=== PATIENT | female | born 1995 | race Caucasian/White ===

== ENCOUNTER 2024-08-02 12:28 | Emergency (ER) | payer OTHER, MEDICAID, SELFPAY ==
[2024-08-02 12:34] VITALS: BP 123/84; PULSE 112; RESP 19; TEMP 36.8; O2SAT 98; BMI 31.8
--- NOTE | 2024-08-02 12:37 | XR_ITS ---
Examination: Complete OB ultrasound, less than 14 weeks, transabdominal Date and time of exam: August 02, 2024 1402 hours INDICATIONS: Vaginal bleeding and vomiting beginning midnight Technique: Obstetrical ultrasound images less than 14 weeks performed via transabdominal imaging Findings: A normal shaped single intrauterine gestation is present in the uterus. pole 5.2 cm corresponds to 11 week 6 day gestational age Cardiac motion 185 BPM Ultrasonographic survey of visible and placental structures unremarkable. Amniotic fluid volume appears appropriate for this estimated gestational age. Right ovary 3.5 x 1.4 x 2.2 cm arterial flow Left ovary 2.4 x 1.9 x 1.8 cm arterial flow IMPRESSION: Viable intrauterine gestation 11 weeks 6 days Given the cardiac rate 185 BPM, recommend short-term follow-up pelvic sonography.
--- NOTE | 2024-08-02 12:37 | PD.EDRME ---
Rapid Medical Screening Exam RME Arrival date/time: 08/02/24 12:28 28-year-old female approximately 11 weeks presents to the emergency department complains of nausea and vomiting Chief Complaint: Nausea/Vomiting/Diarrhea Time Seen by Provider: 08/02/24 12:32 Vital signs: Vital Signs Temperature 98.2 F 08/02/24 12:34 Pulse Rate 112 H 08/02/24 12:34 Respiratory Rate 19 08/02/24 12:34 Blood Pressure 123/84 08/02/24 12:34 Pulse Oximetry (%) 98 08/02/24 12:34 Oxygen Delivery Method Room Air 08/02/24 12:34
[2024-08-02] MEDS: METOCLOPRAMIDE INJ 5 MG/ML VIAL 2 ML 10 MG IM (12:49)
[2024-08-02 12:56] LABS: Collection Type, Urine Clean Catch
[2024-08-02 13:09] LABS: Basophils % (Auto) 0 % (0-2.5); Eosinophils % (Auto) 0 % (0-10); Hematocrit 39.7 % (36.0-46.0); Hemoglobin 13.8 g/dL (12.0-16.0); Immature Granulocytes % (Auto) 1 % (0-0); Immature Granulocytes Auto 0.08 Thou/mm3 (0.00-0.00); Lymphocytes # (Auto) 0.5 Thou/mm3 (1.0-4.8); Lymphocytes % (Auto) 5 % (10-50); Mean Corpuscular HGB Conc 34.8 g/dl (31.0-37.0); Mean Corpuscular Hemoglobin 28.8 pg (25.0-35.0); Mean Corpuscular Volume 83 fL (80-100); Monocytes # (Auto) 0.5 Thou/mm3 (0.0-0.8); Monocytes % (Auto) 5 % (0-12); Neutrophils # (Auto) 8.6 Thou/mm3 (1.8-7.7); Neutrophils % (Auto) 89 % (37-80); Nucleated Red Blood Cell % 0 /100 WBC (0); Platelet Count 333 Thou/mm3 (140-440); RDW Standard Deviation 42.5 fL (36.4-46.3); White Blood Count 9.7 Thou/mm3 (3.6-11.0)
[2024-08-02 13:28] LABS: Bacteria,Urine Rare; Bilirubin,Urine Negative (Negative); Blood,Urine 1+ (Negative); Color,Urine Yellow (Lt Yel-Yel); Glucose, Urine Negative (Negative); Ketones,Urine 3+ (Negative); Leukocyte Esterase,Urine Negative (Negative); Nitrite,Urine Negative (Negative); PH,Urine 6.5 (5.0-7.0); Protein,Urine 1+ (Neg - Trace); RBC,Urine 21 /hpf (0-3); Specific Gravity,Urine 1.038 (1.001-1.035); Squamous Epithelial Cell,Urine 19 /hpf (0-5); Urobilinogen,Urine Negative mg/dL (0.0-1.0); WBC,Urine 3 /hpf (0-5)
[2024-08-02 13:30] LABS: Alanine Aminotransferase 15 U/L (10-49); Albumin/Globulin Ratio 1.7 (1.2-2.2); Alkaline Phosphatase 64 U/L (46-116); Anion Gap 9 (7-16); Aspartate Amino Transferase 17 U/L (0-34); BUN/Creatinine Ratio 13 Ratio (12-20); Bilirubin,Total 1.1 mg/dL (0.3-1.2); Blood Urea Nitrogen 8 mg/dL (9-23); Calcium 9.7 mg/dL (8.3-10.6); Calcium (Corrected) 9.7 mg/dL (8.5-10.1); Carbon Dioxide 21.2 mMol/L (20.0-31.0); Chloride 103 mMol/L (98-107); Creatinine (Component) 0.6 mg/dL (0.6-1.3); Estimated Creatinine Clearance 134.6 mL/min (>60); Glucose 140 mg/dL (74-106); Magnesium 1.6 mg/dL (1.6-2.6); Osmolality,Calculated 266 (275-295); Potassium 3.3 mMol/L (3.4-5.1); Sodium 133 mMol/L (136-145); eGFR > 60 See Note
[2024-08-02 13:30] LABS: Clarity,Urine Hazy (Clear/Hazy)
[2024-08-02 14:04] LABS: Beta HCG,Quantitative 78933 mIU/mL (<5.0)
--- NOTE | 2024-08-02 15:08 | EDNOTE_ITS ---
Nausea/Vomit./Diarrhea-RME/HPI General Chief complaint: Nausea/Vomiting/Diarrhea Stated complaint: VOMITING AND DIARRHEA NON-STOP SINCE MIDNIGHT 11WK Time Seen by Provider: 08/02/24 12:32 Arrival date/time: 08/02/24 12:28 RME / HPI RME / HPI Narrative: 08/02/24 12:28 28-year-old female approximately 11 weeks presents to the emergency department complains of nausea and vomiting DR. CRISTOBAL MAIN ED EVALUATION 28 year old female with history of chiari malformation type 1 and currently 11 weeks gestational age A1 presents to the ED for complaint of nausea, nonbloody vomiting, and nonbloody diarrhea today. Reports her symptoms began last night and non stop since. Reportedly had been prescribed Diclegis for the nausea/vomiting by her OB which she took last night with no improvement. Denies any fevers, chills, chest pain, shortness of breath, abdominal pain, or urinary symptoms. Related Data Previous Rx's ?Medication ?Instructions ?Recorded rizatriptan 10 mg tablet (Maxalt) See Rx Instructions PO .COMPLEX 08/29/20 #20 tabs ondansetron 4 mg disintegrating 4 mg PO Q8H PRN nausea and 07/01/24 tablet vomiting #14 tabs Allergies Allergy/AdvReac Type Severity Reaction Status Date / Time sulfamethoxazole Allergy Mild RASH Verified 08/02/24 12:32 trimethoprim Allergy Mild RASH Verified 08/02/24 12:32 Review of Systems Review of Systems Narrative Review of Systems: GEN: No fever, no chills, no weight loss EYES: No discharge, no visual changes, no pain HEENT: No ear pain, no congestion, no sore throat PULM: No shortness of breath, no cough, no congestion CV: No chest pain, no dyspnea on exertion, no palpitations GI: +n/v/d, no pain, no constipation : No frequency, no urgency and no dysuria MUSC/SKEL No joint pain, no back pain SKIN: No rash PSYCH: No hallucinations, no depression HEME/LYMPH: No easy bleeding or bruising tendencies NEURO: No weakness, no headache Past Medical History Past Medical History CARDIAC: Negative Congestive Heart Failure RESPIRATORY: Negative Chronic Obstructive Pulmonary Disease (COPD) GENITOURINARY: Negative Renal Disease ENDOCRINE: Negative Diabetes Mellitus Type 1 or Diabetes Mellitus Type 2 Social History SMOKING STATUS: Never smoker ED Exam Narrative Physical exam: GENERAL APPEARANCE: Well hydrated, well nourished, in no acute distress. VITALS: All vitals were reviewed and the pulse ox is 98% on room air which is normal according to my interpretation. HEENT: Normocephalic, atramatic, EOMI, EACs are patent. There is no bulge or retraction. Throat without erythema or exudate. Moist oromucosa. No jaundice NECK: Supple, no JVD or bruits. CARDIOVASCULAR: Heart regular without S3-S4 or murmur. No rubs or gallops. LUNGS/CHEST: Clear to auscultation bilaterally. No rales, rhonchi, or wheezing. Normal inspection. ABDOMEN: Soft, nontender, with normal bowel sounds. No pulsatile masses. No rebound, rigidity, or guarding. No incarcerated hernia. Normal inspection and palpation. EXTREMITIES: Normal inspection and palpation. No edema, clubbing, or cyanosis. Intact CSM SKIN: Warm and dry without rashes. Normal inspection. MUSCULOSKELETAL: Normal inspection. No gross deformity, full ROM all extremities NEURO: Alert and oriented x3. Cranial nerves II through XII grossly intact. There are no other motor or sensory deficits noted. PSYCHIATRIC: Normal mood and affect. No psychosis Course Quality Measures none Orders Category Date Time Status US OB <= 14 weeks fetus Stat Exams 08/02/24 12:37 Completed ABO/RH Type Stat Lab 08/02/24 12:51 Completed Beta HCG,Quantitative Stat Lab 08/02/24 12:51 Completed CBC Stat Lab 08/02/24 12:51 Completed Comprehensive Metabolic Panel Stat Lab 08/02/24 12:51 Completed Mag [Magnesium] Stat Lab 08/02/24 12:51 Completed UA [Urinalysis] Stat Lab 08/02/24 12:54 Completed Urine Culture Stat Lab 08/02/24 12:54 Received Metoclopramide Inj [Reglan Inj] Med 08/02/24 12:37 Discontinued 10 mg IM X1 ONE Sodium Chloride 0.9% 1000 ml [Ns] 1,000 ml Med 08/02/24 15:04 Discontinued IV 999 mls/hr Vital Signs Vital signs: Vital Signs Temperature 98.2 F 08/02/24 12:34 Pulse Rate 112 H 08/02/24 12:34 Respiratory Rate 19 08/02/24 12:34 Blood Pressure 123/84 08/02/24 12:34 Pulse Oximetry (%) 98 08/02/24 12:34 Oxygen Delivery Method Room Air 08/02/24 12:34 Nausea/Vomiting/Diarrhea MDM Narrative MDM Narrative:: Emily Alamo am scribing for and in the presence of Dr. Cristobal. CBC is negative. CMP is negative. UA is dehydrated. Ultrasound report is enclosed. Beta-hCG is 79,000. The patient blood type is A+. She is not bleeding. Magnesium is negative. In the emergency department the patient received a liter of normal saline bolus for dehydration. And I gave the patient copy of the ultrasound report to follow-up with her ENAMEL BUFFER as an outpatient. 6 PM as I was busy with a critical patient in another room, the patient eloped after receiving a full liter of normal saline bolus Patient data External records reviewed:: [facility] previous records (I reviewed ED visit on 06/30/2024) Clinical information provided by:: patient Social determinants that could affect healthcare access:: none Patient has the following chronic illnesses:: chiari malformation type 1 and currently 11 weeks gestational age A1 How is presenting disease/condition affected by chronic disease/condition?: exacerbated by Evaluation data The following diagnostics were reviewed and interpreted by me:: lab results and radiology exam(s) Lab and/or radiology exams considered but not ordered:: None Interpretation Summary: Ordering Physician: Sherman Seymour NP, NP Date of Service: 08/02/24 Procedure(s): US OB <= 14 weeks fetus Accession Number(s): [id number] cc: Sherman Seymour NP, NP; Leon Stacy MD; Trey Edwards MD~ Examination: Complete OB ultrasound, less than 14 weeks, transabdominal Date and time of exam: August 02, 2024 1402 hours INDICATIONS: Vaginal bleeding and vomiting beginning midnight Technique: Obstetrical ultrasound images less than 14 weeks performed via transabdominal imaging Findings: A normal shaped single intrauterine gestation is present in the uterus. pole 5.2 cm corresponds to 11 week 6 day gestational age Cardiac motion 185 BPM Ultrasonographic survey of visible and placental structures unremarkable. Amniotic fluid volume appears appropriate for this estimated gestational age. Right ovary 3.5 x 1.4 x 2.2 cm arterial flow Left ovary 2.4 x 1.9 x 1.8 cm arterial flow IMPRESSION: Viable intrauterine gestation 11 weeks 6 days Given the cardiac rate 185 BPM, recommend short-term follow-up pelvic sonography. Dictated By: Leon Stacy MD Signed By: <Electronically signed by Leon Stacy MD in OV> 08/02/24 1454 Medications / Prescriptions Medications / Prescriptions considered but not ordered:: None Medication administrations:: Medication Administration History Discontinued Medications Sodium Chloride (Ns) 1,000 mls @ 999 mls/hr IV .Q1H1M ONE Stop: 08/02/24 16:04 Last Admin: 08/02/24 15:48 Dose: 999 mls/hr Documented By: ARF Metoclopramide HCl (Metoclopramide Inj 5 Mg/Ml Vial 2 Ml) 10 mg IM X1 ONE; Protocol Stop: 08/02/24 12:38 Last Admin: 08/02/24 12:49 Dose: 10 mg Documented By: ARF See above Consultations Consultation(s) initiated? (list below): No Diagnosis Nausea Differential Diagnosis: gastroenteritis, drug-induced nausea and vomiting, dehydration and other (Hyperemesis gravidarum ) Most likely diagnosis given after review of the tests above:: Dehydration Admission Indicated Admission indicated?: not indicated Admission Request Was there a request for admission?: No Disposition Plan Disposition Plan: Discharge Discharge Attestation Discharge Attestation: The patient and all family members were given an opportunity to ask questions and understood the discharge instructions. Discharge instructions specifically effects, indications for sooner follow up or return to the emergency department, and the expected course of current diagnosis. Patient condition: Stable Discharge Plan Plan Patient Disposition: Elopement Disposition Comment: Stable at elopement Prescriptions/Referrals Prescriptions/Med Rec: No Action rizatriptan [Maxalt] 10 mg tablet See Rx Instructions .ROUTE .COMPLEX Qty: 20 0RF Rx Instructions: take 1 tab at onset of headache; if no relief may repeat 1 tab after at least 2 hrs; max = 3 tabs/24 hr ondansetron 4 mg tablet,disintegrating 4 mg PO Q8H PRN (Reason: nausea and vomiting) Qty: 14 0RF Referrals: Trey Edwards [Primary Care Provider] - In 1 week Problem List Clinical Impression: Dehydration, Gastroenteritis Patient/Caregiver Discharge Instructions Print Language: Persian
[2024-08-02] MEDS: SODIUM CHLORIDE 0.9% 1000 ML 1,000 ML 999 ML IV (15:48)
--- NOTE | 2024-08-02 17:57 | PC.NURSE ---
eloped before dc
== END 2024-08-02 18:14 | disposition left against medical advice (07) ==
PROVIDERS: Nurse Practitioner Primary Care; Emergency Provider Emergency Medicine; PCP Obstetrics & Gynecology
DX: O99.281 Endocrine, nutritional and metabolic diseases complicating pregnancy, first trimester (principal); O99.611 Diseases of the digestive system complicating pregnancy, first trimester; E86.0 Dehydration; K52.9 Noninfective gastroenteritis and colitis, unspecified; Z3A.11 11 weeks gestation of pregnancy; Z53.29 Procedure and treatment not carried out because of patient's decision for other reasons
CPT/HCPCS: 36415; 76801; 80053; 81001; 83735; 84702; 85025; 86900; 86901; 87086; 96372; 99281; J2765; J7030